=== PATIENT | male | born 1995 | race Caucasian/White ===

== ENCOUNTER 2019-11-10 19:51 | Emergency (ER) | payer OTHER ==
[~2019-11-10] VITALS: Ht 162.6 cm; Wt 77.8 kg
[2019-11-10 20:15] VITALS: Ht 162.6 cm; Wt 77.8 kg
[2019-11-10 23:05] VITALS: BP 125/78
[2019-11-10 23:51] LABS: microscopic required? NO
[2019-11-10 23:57] LABS: urine erythrocyte NEGATIVE (NEGATIVE)
== END 2019-11-10 23:05 | disposition home or self-care (01) ==
LOC: ED 19:51
PROVIDERS: Emergency Medicine
DX: N50.812 Left testicular pain (principal); R10.32 Left lower quadrant pain
CPT/HCPCS: 87491; 87591; Q0092